=== PATIENT | male | born 1940 | race Caucasian/White ===

== ENCOUNTER 2022-02-03 10:48 | Emergency (ER) | payer OTHER ==
[~2022-02-03 10:48] MED LIST: ALFUZOSIN HCL E10 MG PO; ALOE VERA237 ML TOP; ARTIFICIAL TEA1 EACH OU; ASPIRIN 325MG325 MG PO; ASPIRIN CHEWABL81 MG PO; ASPIRIN EC81 MG PO; ATIVAN0.5 MG PO; CIPRO500 MG PO; CLARITIN10 MG PO; COLCHICINE0.6 M1 PO; CYMBALTA60 MG PO; DICLOFENAC SOD100 GM TP; FLOMAX 0.4 MG0.4 MG PO; FLONASE ALLER15.8 ML; FUROSEMIDE40 MG PO; HEMP EXTRACT PO; INSULIN LI100 UNIT/1 SQ; KENALOG CREAM 015 GM TOP; KETOCONAZOLE120 ML TOP; LACTULOSE20 GM/30 M PO; LANTUS SOL100 UNIT/1 SQ; LIPITOR TAB 2020 MG PO; LIPITOR80 MG PO; LOPRESSOR100 MG PO; LOSARTAN POTAS100 MG PO; MIRALAX17 GM PO; MULTIVITAMIN1 EACH PO; NARCAN 2 MG/21 MG/ML SQ; NEURONTIN600 MG PO; NITROSTAT0.4 MG SL; NORCO 5-325 TA1 EACH PO; NORVASC5 MG PO; NOVOLOG MI100 UNIT/1 SC; OMEPRAZOLE20 MG PO; OMNICEF 300 MG300 MG PO; PROBIOTIC BLEND PO; TYLENOL325 MG PO; VITAMIN C 500500 MG PO; VITAMIN D1000 UNIT PO; VITAMIN D325 MCG PO; ZINC OXIDE2500 GM TOP; ZYLOPRIM 300 M300 MG PO
[2022-02-03 11:20] LABS: HEMOGLOBIN 13.5 gm/dl (14.0-17.5); RED BLOOD COUNT 4.16 M/UL (4.20-5.50); WHITE BLOOD COUNT 9.4 K/UL (4.5-11.0)
== END 2022-02-03 11:32 | disposition other institution (70) ==
LOC: ER1 10:48
PROVIDERS: Emergency Medicine
DX: I63.9 Cerebral infarction, unspecified (principal); G93.89 Other specified disorders of brain; I25.10 Atherosclerotic heart disease of native coronary artery without angina pectoris; E11.9 Type 2 diabetes mellitus without complications; E78.5 Hyperlipidemia, unspecified; K21.9 Gastro-esophageal reflux disease without esophagitis
CPT/HCPCS: 70450; 71045; 80053; 82550; 82553; 84484; 85025; 85610; 85730; 93005; 99285